=== PATIENT | female | born 1955 | race Caucasian/White ===

== ENCOUNTER 2016-11-02 02:25 | Emergency (ER) | payer SELFPAY ==
[2016-11-02] MEDS ORDERED: Ondansetron HCl/PF 4 MG/2 ML Vial ONE (02:50)
[2016-11-02] MEDS ORDERED: Fentanyl 100 MCG/2 ML VIAL ONE ×2 (02:50→04:04)
[2016-11-02 03:09] LABS: #Basophils 0.1 thou/uL (0.0-0.2); #Eosinphils 3.2 thou/uL (0.0-0.7); #Lymphocytes 1.6 thou/uL (1.20-3.40); #Monocytes 0.7 thou/uL (0.11-0.59); #Neutrophils 8.6 thou/uL (1.40-6.50); %Basophils 0.7 % (0.0-1.0); %Eosinophils 22.6 % (0.0-10.0); %Neutrophils 60.6 % (42.0-75.0); Hemoglobin 13.7 g/dL (12.0-16.0); Mean Corpuscular HGB CONC 33.1 g/dL (32.0-36.0); Mean Corpuscular Hemoglobin 30.9 pg (27.0-31.0); Mean Corpuscular Volume 93.4 fl (81.0-99.0); Mean Platelet Volume 6.2 fL (7.4-10.4); Platelet Count 232 thou/uL (130-400); Red Blood Cell (RBC) Count 4.42 mill/uL (4.20-5.40); White Blood Cell (WBC) Count 14.2 thou/uL (4.8-10.8)
[2016-11-02 03:11] LABS: Prothrombin Time 13.1 SEC (12.0-14.7)
[2016-11-02 03:21] LABS: ALT (SGPT) 27 U/L (8-55); AST (SGOT) 35 U/L (5-34); Albumin 4.2 g/dL (3.5-5.0); Alkaline Phosphatase 110 U/L (40-150); Anion Gap 15 mmol/L (10-20); BUN (Urea Nitrogen) 23 mg/dL (9.8-20.1); Bilirubin, Total 0.7 mg/dL (0.2-1.2); Calc. Creatinine Clearance 0 mL/min (70-130); Calcium 9.3 mg/dL (7.8-10.44); Carbon Dioxide 25 mmol/L (22-29); Chloride 108 mmol/L (98-107); Estimated GFR-MDRD 75; Globulin 3.3 g/dL (2.4-3.5); Glucose 110 mg/dL (70-105); Lipase 21 U/L (8-78); Potassium 3.6 mmol/L (3.5-5.1); Protein, Total 7.5 g/dL (6.0-8.3); Sodium 144 mmol/L (136-145)
[2016-11-02 03:22] LABS: CKMB 0.9 ng/mL (0-6.6); Troponin I Less than 0.010 ng/mL (< 0.028)
[2016-11-02] MEDS ORDERED: Lidocaine Viscous Sol 2% 15 ml UD Cup ONE (03:24)
[2016-11-02] MEDS ORDERED: Mag-Al Plus 1200 MG/1200 MG/120 MG/30 ML UDCUP ONE (03:25)
[2016-11-02 03:53] LABS: Bilirubin Negative (Negative); Blood, Urine Small (Negative); Clarity Hazy (Clear); Glucose, Urine (Dipstick) Negative (Negative); Leukocyte Negative (Negative); Nitrite Negative (Negative); Protein, Urine (Dipstick) Negative (Neg-Trace); Specific Gravity, Urine 1.025 (1.005-1.030); Urobilinogen 0.2 mg/dL (0.2-1.0); pH, Urine 5.5 (5.0-9.0)
[2016-11-02 04:01] LABS: Bacteria/HPF Rare-Few HPF (None Seen); Other Microscopic Description 1+ MUCUS; RBC/HPF 0-3 HPF (0-3); Squamous Epithelial 0-3 HPF (0-3); WBC/HPF 0-3 HPF (0-3)
--- NOTE | 2016-11-02 09:08 | RAD ---
ACUTE ABDOMEN SERIES: DATE: 11/02/16. FINDINGS: Supine and erect films show no free air beneath the diaphragm. Pockets of gas are seen in large and small bowel, none of which is dilated. Some calcifications in the pelvis appear to be phleboliths. No worrisome calcifications were seen elsewhere. The chest film in the series is compared with a 11/01/07 study. The cardiac size is the same. There is no acute infiltrate or effusion. There is pr obably a little bit of lingular scarring. IMPRESSION: Nonspecific abdominal findings. POS: HOME
== END 2016-11-02 04:19 | disposition short-term general hospital (02) ==
LOC: BURERS 02:25
DX: R10.13 Epigastric pain (principal); R94.31 Abnormal electrocardiogram [ECG] [EKG]
CPT/HCPCS: 74022; 80053; 81003; 81015; 82553; 83690; 84484; 85025; 85610; 85730; 93005; 96374; 96375; 96376; J2405; J3010

== ENCOUNTER 2021-03-07 11:01 | Emergency (ER) | payer BC, SELFPAY ==
[2021-03-07] MEDS ORDERED: Boostrix 0.5 ML (Tdap) VIAL ONE (11:25)
[2021-03-07] MEDS ORDERED: Bacitracin 1 PK ONE (12:32)
[2021-03-07] MEDS ORDERED: Lidocaine 1% PF 5 ML VIAL ONE (12:32)
== END 2021-03-07 12:55 | disposition home or self-care (01) ==
LOC: BURERS 11:01
DX: S61.211A Laceration without foreign body of left index finger without damage to nail, initial encounter (principal); S51.812A Laceration without foreign body of left forearm, initial encounter; W22.8XXA Striking against or struck by other objects, initial encounter
CPT/HCPCS: 12002; 90471; 90715

== ENCOUNTER 2022-05-30 09:00 | Emergency (ER) | payer BC ==
[2022-05-30] MEDS ORDERED: Lidocaine Viscous Sol 2% 15 ml UD Cup ONE (09:40)
[2022-05-30] MEDS ORDERED: Mag-Al Plus 1200 MG/1200 MG/120 MG/30 ML UDCUP ONE (09:40)
[2022-05-30 09:52] LABS: #Eosinphils 0.2 thou/uL (0.0-0.7); #Lymphocytes 0.3 thou/uL (1.20-3.40); #Monocytes 0.4 thou/uL (0.11-0.59); #Neutrophils 6.4 thou/uL (1.40-6.50); %Basophils 0.5 % (0.0-1.0); %Eosinophils 2.3 % (0.0-10.0); %Monocytes 5.7 % (0.0-10.0); %Neutrophils 87.5 % (42.0-75.0); Mean Corpuscular Hemoglobin 28.5 pg (27.0-31.0); Mean Platelet Volume 6.6 fL (7.4-10.4); Platelet Count 225 10x3/uL (130-400); RBC Distribution Width 13.7 % (11.5-14.5); Red Blood Cell (RBC) Count 4.92 mill/uL (4.20-5.40); White Blood Cell (WBC) Count 7.3 10x3/uL (4.8-10.8)
[2022-05-30 10:09] LABS: ALT (SGPT) 60 U/L (8-55); AST (SGOT) 89 U/L (5-34); Albumin 4.1 g/dL (3.4-4.8); Alkaline Phosphatase 126 U/L (40-110); Anion Gap 14 mmol/L (10-20); BUN (Urea Nitrogen) 25 mg/dL (9.8-20.1); Bilirubin, Total 1.5 mg/dL (0.2-1.2); Calc. Creatinine Clearance 0 mL/min (70-130); Calcium 8.9 mg/dL (7.8-10.44); Carbon Dioxide 21 mmol/L (23-31); Chloride 108 mmol/L (98-107); Estimated GFR 88; Glucose 114 mg/dL (80-115); Lipase 6 U/L (8-78); Potassium 3.6 mmol/L (3.5-5.1); Protein, Total 7.1 g/dL (5.8-8.1); Sodium 139 mmol/L (136-145)
== END 2022-05-30 11:06 | disposition home or self-care (01) ==
LOC: BURERS 09:00
DX: A05.9 Bacterial foodborne intoxication, unspecified (principal); I10 Essential (primary) hypertension
CPT/HCPCS: 80053; 83690; 85025; 93005; 96360